=== PATIENT | female | born 1965 | race Caucasian/White ===

== ENCOUNTER 2022-09-18 10:47 | Day surgery (SDC) | payer OTHER ==
[2022-09-17 15:10] VITALS: BMI 20.1
[2022-09-18] MEDS ORDERED: PROPOFOL 80 ML ONE (12:11)
[2022-09-18] MEDS ORDERED: PROPOFOL 20 ML ONE (12:11)
[2022-09-18 13:33] VITALS: RESP 16; TEMP 97.9
[2022-09-18 14:41] VITALS: BP 112/78; PULSE 72
== END 2022-09-18 14:40 | disposition home or self-care (01) ==
LOC: FASU-ENDO 10:47
PROVIDERS: ATTEND Internal Medicine Gastroenterology
PROC: 0DJD8ZZ Inspection of Lower Intestinal Tract, Via Natural or Artificial Opening Endoscopic (ICD-10-PCS; principal; 2022-09-18 12:27)
DX: Z12.11 Encounter for screening for malignant neoplasm of colon (principal); Z80.0 Family history of malignant neoplasm of digestive organs; K64.1 Second degree hemorrhoids